=== PATIENT | male | born 1980 | race Caucasian/White ===

== ENCOUNTER 2016-10-14 08:33 | Emergency (ER) | payer BC ==
[2016-10-14] MEDS ORDERED: Ketorolac 60 MG/2 ML SDV IM ONE (08:59)
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
--- NOTE | 2016-10-14 10:08 | CR ---
EXAMINATION: Two-view chest (PA and Lateral views). HISTORY: Shortness of breath. FINDINGS: The trachea is midline. The cardiomediastinal silhouette is within normal limits. No pulmonary infil trates, effusions or pneumothorax. Osseous structures appear unremarkable. IMPRESSION: No acute cardiopulmonary process.
[2016-10-14 10:25] VITALS: BP 133/90
== END 2016-10-14 10:20 | disposition home or self-care (01) ==
LOC: MW.ED 08:33
DX: R10.9 Unspecified abdominal pain (principal); I10 Essential (primary) hypertension; F17.210 Nicotine dependence, cigarettes, uncomplicated; Z98.1 Arthrodesis status; Z79.899 Other long term (current) drug therapy
CPT/HCPCS: 71020; 96372; 99284; J1885; 99283

== ENCOUNTER 2017-03-06 20:04 | Emergency (ER) | payer BC ==
[2017-03-06 20:22] VITALS: BP 145/89
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
--- NOTE | 2017-03-07 20:11 | CR ---
EXAM DATE: 03/06/17 PATIENT'S AGE: 36 Patient: JASWANT GARCIA Facility: [place], [place] Site . Site : 1980 Study: XRay Extremity Right Finger [id number]/[id number] 9:08:49 PM Ordering Physician: Shantel Ramos. DIRECTOR GLOBAL Final Report: HISTORY: Pain and bruising, swelling. Recent trauma. TECHNIQUE: Three views of the 5th digit of the right hand. COMPARISON: No prior. FINDINGS: There is an acute comminuted fracture of the distal phalanx of the 5th digit of the right hand. A small fragment is displaced palmar and proximally to the level of the DIP joint. Another small fragment is rotated at the mid aspect of the distal phalanx. The middle and proximal phalanges of the 5th digit are intact. Joint spaces appear maintained. IMPRESSION: Acute comminuted fracture of the distal phalanx of the 5th digit of the right hand. Dictated by Garrett Carl MD @ 03/06/2017 9:29:24 PM Dictated by: Garrett Carl MD @ 03/06/2017 21:29:28 (Electronic Signature) Report Signed by Proxy. CALEB
== END 2017-03-06 21:40 | disposition left against medical advice (07) ==
LOC: MW.ED 20:04
DX: S62.636A Displaced fracture of distal phalanx of right little finger, initial encounter for closed fracture (principal); F17.210 Nicotine dependence, cigarettes, uncomplicated; Z79.899 Other long term (current) drug therapy; W22.8XXA Striking against or struck by other objects, initial encounter
CPT/HCPCS: 73140-26-F9; 73140-F9; 99283